=== PATIENT | male | born 1975 | race Two or more races ===

== ENCOUNTER 2020-06-25 12:45 | Inpatient (IN) | payer OTHER ==
[~2020-06-25] VITALS: Ht 170.2 cm; Wt 68.0 kg
[2020-07-03] MEDS ORDERED: INTESTINEX680 M1 PO (13:01)
[2020-07-03] MEDS ORDERED: ULTRACET PO (13:01)
[2020-07-03] MEDS ORDERED: RECTICARE30 GM TOP ×2 (13:01→13:08)
[2020-07-03] MEDS ORDERED: TAMS0.4C PO (13:08)
== END 2020-07-03 13:40 | disposition home or self-care (01) | DRG 395 ==
LOC: O/R 07-02 05:55 → SURH 07-02 05:55
PROVIDERS: ADMIT Surgery; ATTEND Surgery
PROC: 0DBQ8ZX Excision of Anus, Via Natural or Artificial Opening Endoscopic, Diagnostic (ICD-10-PCS; principal; 2020-07-02 07:00)
DX: D12.8 Benign neoplasm of rectum (principal)